=== PATIENT | female | born 2000 | race Caucasian/White ===

== ENCOUNTER 2019-08-09 21:20 | Emergency (ER) | payer BC, SELFPAY ==
[2019-08-09 21:21] VITALS: BP 131/81; PULSE 103; RESP 18; TEMP 36.8; O2SAT 100; BMI 42.3
--- NOTE | 2019-08-09 21:47 | US_ITS ---
STUDY: ULTRASOUND OF THE FEMALE PELVIS - COMPLETE REASON FOR EXAM: Female, 19 years old. Right lower quadrant pain. LMP: 07/26/2019. TECHNIQUE: Transabdominal and transvaginal pelvic ultrasound. COMPARISON: None. FINDINGS: Normal uterine size measuring 7.8 x 3.0 x 4.8 cm. There are no myometrial masses. An IUD is located in the endometrial cavity but low in the uterus, tip approximately 2 cm caudad to the fundal endometrium. Normal endometrial thickness measuring 2 mm. There are no endometrial masses. Small amount of fluid in the lower uterine segment endometrium and upper aspect of the cervical canal. Normal right ovary, measuring 4.4 x 3.8 x 2.2 cm. Volume 19.3 cc. Contains a physiologic 2.3 cm diameter cyst, no concerning mass. Doppler flow is seen to the right ovarian parenchyma; Doppler evaluation was suboptimal due to technical factors. Left ovary not visible. There is no free fluid in the pelvis. No suspicious adnexal mass. US/Transvaginal Non- IMPRESSION: Physiologic 2.3 cm right ovarian cyst. Right ovarian size within normal limits. Suboptimal Doppler evaluation due to technical factors but no definite evidence of torsion. Slightly low in location IUD. Small amount of fluid in the lower uterine segment endometrial and upper cervical canal, not necessarily pathologic. Left ovary not visible. Electronically Signed: Abel Almanza, at 23:28 EDT Tel , Service support ,
[2019-08-09 22:26] LABS: Mucous, Urine 0 SEEN /hpf (<or=2+)
[2019-08-09 22:27] LABS: Color, Urine Yellow (Yellow); Glucose, Dipstick Normal (Normal); Ketone-Dipstick Negative (Negative); Leukocyte Esterase-Dipstick 100 /ul (Negative); Nitrite-Dipstick Negative (Negative); Occult Blood-Urine Negative /ul (Negative); Protein-Dipstick Negative (Negative); Specific Gravity, Urine 1.015 (1.002-1.030); Urine Bilirubin Dipstick Negative (Negative); Urine Clarity Clear (Clear); Urine Urobilinogen Normal (Normal)
[2019-08-09 22:29] LABS: Internal QC Validated? YES +Cl - CLEAR BKGD; Pregnancy, Urine Negative Negative
[2019-08-09 22:33] LABS: Red Blood Cells-Urine 0 SEEN /hpf (0-5); Squamous Epithelial Cells - UA 5-10 SEEN /hpf (5-10); White Blood Cells 5-10 SEEN /hpf (0-5)
[2019-08-09 22:34] LABS: Bacteria RARE /hpf (None Seen)
--- NOTE | 2019-08-09 23:03 | NURSING ---
Unable to draw blood off SL; 2nd RN unsuccessful with peripheral attempt x2. Will call lab for blood draw once pt returns from US. MD Deras aware of delay in care.
--- NOTE | 2019-08-09 23:27 | ED.DCSUM_ITS ---
- ER Visit Summary Date of Service: 08/09/19 Chief Complaint: Abdominal pain History of Present Illness: The patient is a 19 F with abdominal pain for 3 days. The pain seems to be localized into her right pelvis. She thought it might be related to her IUD. She followed up with her COMMERCIAL ELECTRICIAN who plans to do an outpatient ultrasound. She presented today because she is having increasing pain. He does report some vaginal spotting but denies discharge. She has some nausea but denies any other GI symptoms. She does not have any urinary symptoms. Denies any history of abdominal or pelvic surgery besides the IUD placement. Physical Examination: Afebrile and vital signs unremarkable except for heart rate of 103. She appears nontoxic and in no acute distress. Alert and oriented. Heart regular. Lungs clear. Abdomen tender in the right pelvic region. No guarding or rebound. No other tenderness. Skin appears normal. Test Results: Blood work is pending. Urinalysis shows 100 leukocyte esterase and 5-10 white cells, but there is also 5-10 epithelial cells. I suspect this is contamination. She is not having urinary symptoms. test was negative. Ultrasound is pending. Emergency Department Course and Treatment: Patient initially declined pain medicine but then had increasing pain and was treated with morphine and Zofran. Urinalysis shows likely contamination. test was negative. Blood work and ultrasound are pending. Patient was signed out to Dr. Riggins to check the blood work and ultrasound results. Treat and disposition accordingly. I advised that if she does not have any abnormal findings on the ultrasound but has a leukocytosis or other concerning findings, she may need CT of her abdomen. I explained this to the patient. If her imaging and blood work are unremarkable, the patient will be discharged with anti-inflammatories and nausea medication. Treatment Plan: As above Disposition: Pending results Impression: 1. Right pelvic pain This note was generated with [employer] dictation software. It may contain incorrect words, spelling, and punctuation that were not noted in review of the chart prior to signing ED Disposition - Plan for ED Patient: Referrals: [facility] Doctor,Out of [Primary Care Provider] -
--- NOTE | 2019-08-09 23:32 | DCINST.ED_ITS ---
ED Disposition - Plan for ED Patient: Instructions: PELVIC PAIN, Unknown Cause Prescriptions: Naproxen [Naprosyn] 500 mg PO BID PRN #20 tab Prescription Printed Ondansetron [Zofran Odt] 4 mg PO Q8H PRN PRN #10 tab PRN Reason: Nausea Prescription Printed Additional Instructions: Follow up with your global sales director. Call in the morning.
[2019-08-09] MEDS: Morphine 4 MG/ML Syringe IV (23:33)
[2019-08-09] MEDS: Ondansetron 4 MG/2 ML Vial IV (23:33)
[2019-08-09 23:41] LABS: Absolute Lymphocyte Count 1.58 X10^3/uL (0.83-4.51); Absolute Neutrophil Count 12.1 X10^3/uL (2.0-7.7); Basophil# 0.03 X10^3/uL; Basophil% 0.2 % (0-1); Eosinophil# 0.07 X10^3/uL; Eosinophils% 0.5 % (0-5); Hematocrit 39.9 % (37-47); Hemoglobin 12.8 g/dL (12.0-15.0); Lymphocyte # 1.58 X10^3/ul (4.0); Lymphocyte % 10.7 % (19-41); Mean Corp Hgb Conc 32.1 g/dL (32-36); Mean Corpuscular Hgb 28.4 pg (27.0-32.0); Mean Corpuscular Volume 88.5 fL (81-99); Mean Platelet Vol. 9.6 fl (6.2-12.0); Monocyte# 0.82 X10^3/uL; Monocyte% 5.6 % (0-10); NRBC Flagged by Analyzer 0 % (0-5); Neutrophil # 12.14 X10^3/uL (2.7-7.7); Neutrophil % 82.5 % (47-70); Platelet Count 290 K/mm3 (150-450); RBC Distribution Width CV 13.8 % (11.6-14.6); RBC Distribution Width SD 44.7 fl (35.1-43.9); Red Blood Count 4.51 M/mm3 (4.2-5.4); White Blood Count 14.7 K/mm3 (4.4-11.0)
[2019-08-09 23:54] LABS: AST(SGOT) 15 U/L (15-37); Alanine Aminotransfer ALT/SGPT 30 U/L (13-56); Albumin, Serum 3.6 g/dL (3.2-5.0); Alkaline Phosphatase 66 U/L (45-117); Anion Gap 7 (5-15); BUN 12 mg/dL (7-18); BUN/Creat Ratio 16.3 RATIO (10-20); Calcium,Total 8.8 mg/dL (8.5-10.1); Chloride 104 mmol/L (98-107); Creatinine, Serum 0.74 mg/dL (0.55-1.02); EST Glomerular Filtration Rate 107 mL/min (>60); Est Glom Filt Rate - Afr Amer 129 mL/min (>60); Estimated Creatinine Clearance 104.72 ml/min; Globulin 3.7 g/dL (2.2-4.2); Glucose 84 mg/dL (74-106); Lipase 61 U/L (73-393); Potassium 3.8 mmol/L (3.5-5.1); Protein, Total 7.3 g/dL (6.4-8.2); Sodium Level 138 mmol/L (136-145)
[2019-08-10 00:04] VITALS: BP 115/70; PULSE 72; RESP 15
--- NOTE | 2019-08-10 00:37 | CT_ITS ---
STUDY: CT ABDOMEN AND PELVIS WITHOUT CONTRAST REASON FOR EXAM: Female, 19 years old. RLQ pain. TECHNIQUE: Transaxial images were obtained from the dome of the diaphragm to the symphysis pubis without oral contrast, and without intravenous contrast. Sagittal and coronal images were reconstructed. Individualized dose optimization techniques were used for this CT. COMPARISON: Pelvic ultrasound 08/09/2019. FINDINGS: Partially visualized lower chest: [Lung bases unremarkable.] Liver: [No concerning lesions.] Gallbladder and biliary tree: No visible gallstones. No pericholecystic inflammation. No biliary ductal dilation. Pancreas: No pancreatic lesions or inflammation. Spleen: Normal size, no splenic lesions. Adrenal glands: No concerning masses. Kidneys and ureters: No hydronephrosis or renal stones. No concerning masses. No ureteral dilation. Bowel: [Noninflamed appendix.] No obstruction or inflammation of the bowel. Urinary bladder: No stones or wall thickening. Reproductive: Low in location IUD and physiologic 2.3 cm right ovarian cyst again demonstrated. Normal left ovary. Vascular: No abdominal aortic aneurysm. Retroperitoneal and peritoneal spaces: No ascites or free air. No retroperitoneal lesions. Osseous: No acute osseous abnormality. Abdominal and pelvic wall: No concerning findings. CT/Abdomen/Pelvis without Cont IMPRESSION: No acute or concerning findings. Normal appendix. Low in location IUD again demonstrated. Electronically Signed: Abel Almanza, at 1:43 EDT Tel , Service support ,
[2019-08-10 02:06] VITALS: BP 141/99; PULSE 83; RESP 16; O2SAT 96
== END 2019-08-10 02:07 | disposition home or self-care (01) ==
PROVIDERS: Emergency Provider Emergency Medicine
DX: R10.2 Pelvic and perineal pain (principal); N83.201 Unspecified ovarian cyst, right side
CPT/HCPCS: 74176; 76830; 80053; 81001; 81025; 83690; 85025; 93976; 96374; 96375; 99283; A4216; J2405

== ENCOUNTER 2020-01-02 21:17 | Emergency (ER) | payer BC, SELFPAY ==
[2020-01-02 21:18] VITALS: BP 118/75; PULSE 129; RESP 16; TEMP 37.1; O2SAT 100; BMI 42.1
[2020-01-02 21:48] VITALS: TEMP 37.1
[2020-01-02 22:00] VITALS: BP 120/76; PULSE 104; RESP 16; O2SAT 97
[2020-01-02] MEDS: Ondansetron ODT 4 MG Tablet PO ×2 (22:21→23:59)
[2020-01-02 22:29] VITALS: PULSE 105; TEMP 36.6
--- NOTE | 2020-01-02 23:43 | ED.DCSUM_ITS ---
- ER Visit Summary Date of Service: 01/02/20 Chief Complaint: Nausea, vomiting and diarrhea History of Present Illness: The patient is a 19 F past medical history of hypothyroidism. Since 3:00 today patient's had nausea, vomiting diarrhea. Subjective fever. No chills. No abdominal pain. No dysuria. Physical Examination: Young female no acute distress vital signs stable. Afebrile. H EENT exam moist with membranes. No significant signs of dehydration. Neck nontender no lymphadenopathy. Lungs clear to auscultation bilaterally. Heart tachycardic no murmur. Abdomen soft. Minimally tender left upper quadrant. No rebound, guarding or rigidity. Right upper and right lower quadrant unremarkable. No Sharp sign or McBurney's point tenderness. No signs of obstruction. Positive bowel sounds. Extremities moves all 4. No edema. Neurologically she is awake alert with no focal motor deficits. Skin unremarkable. Test Results: None Emergency Department Course and Treatment: Initially ordered IV nurses were unable to get an IV in the patient. She was then given p.o. Zofran. She is been able to drink p.o. fluids. On repeat exam at 2340 she is doing better. She is been able to hold down fluids. Abdomen remains benign and should be discharged home. Treatment Plan: Zofran as needed for nausea. Fluids and rest. Increase diet as tolerated. Return if worse or follow-up if not improving Disposition: dc Impression: Acute viral gastroenteritis Mild dehydration This note was generated with [employer] dictation software. It may contain incorrect words, spelling, and punctuation that were not noted in review of the chart prior to signing ED Disposition - Plan for ED Patient: Referrals: SHEETS,VIKTORIYA [Other]
--- NOTE | 2020-01-02 23:45 | ED.DEP ---
ED Disposition - Plan for ED Patient: Disposition: Home or Assisted Living Instructions: GASTROENTERITIS, Viral (5y-Adult) Prescriptions: Ondansetron [Zofran Odt] 4 mg PO Q8H PRN PRN #7 tab PRN Reason: Nausea Prescription Printed Referrals: SHEETS,VIKTORIYA [Other] - 3-5 Days if not improving Additional Instructions: Plenty of fluids and rest. Increase diet slowly as tolerated. Zofran as needed for nausea. Follow-up with not improving return if feeling worse.
[2020-01-02 23:55] VITALS: BP 120/77; PULSE 109; RESP 16; O2SAT 97
== END 2020-01-03 00:02 | disposition home or self-care (01) ==
PROVIDERS: Emergency Provider Emergency Medicine
DX: E86.0 Dehydration (principal); A08.4 Viral intestinal infection, unspecified; E03.9 Hypothyroidism, unspecified; Z79.899 Other long term (current) drug therapy
CPT/HCPCS: 99283; A4216; J2405